=== PATIENT | male | born 1940 | race Caucasian/White ===

== ENCOUNTER 2025-01-22 07:03 | Emergency (ER) | payer MEDICARE, OTHER, SELFPAY ==
[2025-01-22 07:07] VITALS: BP 159/66; PULSE 59; RESP 16; TEMP 36.4; O2SAT 98; BMI 32.5
--- NOTE | 2025-01-22 07:23 | ED.GENADULT ---
HPI - General Adult General Date Seen: 01/22/25 Chief complaint: Insect Bite Stated complaint: bee sting, swollen forearm Time Seen by Provider: 01/22/25 07:12 Source: patient, RN notes reviewed and old records reviewed Mode of arrival: ambulatory Limitations: no limitations History of Present Illness HPI narrative: Fady is a very pleasant 84-year-old gentleman with history of rheumatoid arthritis, hypertension currently on methotrexate who comes to the emergency room with complaints of left forearm itching and swelling. Fady states that on January 20 he was just finishing up his golf game when something hit him. He assumes it was a hornet or a ground bee. This sting seems to have happened near the medial aspect of the distal forearm. Since that time he has had increased swelling and redness of the entire forearm associated with itching. He has not had fever or chills. He denies any vomiting or otherwise systemic symptoms. He is worried that the stinger may be still present. Does have a Band-Aid over the area that was stung. He has no problems moving his fingers. He has taken Benadryl. Related Data Home Medications ?Medication ?Instructions ?Recorded ?Confirmed allopurinol 100 mg tablet 200 mg PO DAILY 01/22/25 01/22/25 atorvastatin 10 mg tablet 10 mg PO DAILY cholesterol 01/22/25 01/22/25 doxazosin 4 mg tablet 4 mg PO DAILY 01/22/25 01/22/25 folic acid 1 mg tablet 1 mg PO QAM 01/22/25 01/22/25 hydrochlorothiazide 25 mg tablet 25 mg PO DAILY blood pressure 01/22/25 01/22/25 levothyroxine 150 mcg tablet 150 mcg PO DAILY 01/22/25 01/22/25 losartan 50 mg tablet 50 mg PO BID blood pressure 01/22/25 01/22/25 methotrexate sodium 2.5 mg tablet 20 mg PO 01/22/25 Allergies Allergy/AdvReac Type Severity Reaction Status Date / Time No Known Drug Allergies Allergy Verified 01/31/22 13:38 Review of Systems Status of ROS: Reports: 6 or more systems reviewed and unremarkable except as noted in History and below Const: Denies: fever or chills ENMT: Denies: throat pain Cardio: Denies: shortness of breath with exertion Resp: Denies: shortness of breath GI: Denies: vomiting Integ/Breast: Reports: itching and redness PFSH PFSH Social History Smoking Status: Former smoker How often do you have a drink containing alcohol: monthly or less How many standard drinks containing alcohol do you have on a typical day: 1 or 2 AUDIT-C Alcohol total score: 1 Non-prescribed substance use: denies use service: No Exam Narrative: Exam Narrative: Fady is alert and oriented. Very pleasant gentleman looking younger than his stated age. External ears eyes nose clear. No swelling of the mucous membranes. Heart with regular rate and rhythm and lungs are clear. Examination of the left arm shows circumferential swelling. It is not particularly warm to the touch. Rather faint erythema noted terminating at the elbow. There is no lymphadenopathy in the axillary area. His range of motion is full. In the area where the bandage was applied is a small clear fluid-filled blister. I do scraped this area at even though I am not convinced that there is a retained stinger. Const: Vital Signs, click to edit/add: Vital Signs - 24 hr 01/22/25 07:07 Temperature 97.5 F L Pulse Rate [Pulse Oximeter] 59 L Respiratory Rate 16 Blood Pressure [Ri ght Upper Arm] 159/66 H Pulse Oximetry 98 Oxygen Delivery Me thod Room Air Documenting provider has reviewed patient's vital signs: yes Course Course ED Course: Differential diagnosis is allergic/localized reaction to insect assault verses cellulitis. Given the dramatic nature of the swelling and that it is already day 3 after the incident would recommend a trial of antibiotics. Patient has no history of MRSA. Would also recommend low-dose prednisone. Patient is in agreement with this plan. No evidence of sepsis with no fever vomiting or systemic symptoms. Vital Signs Vital signs: Initial Vital Signs Temperature 97.5 F L 01/22/25 07:07 Temperature Source Temporal Artery Scan 01/22/25 07:07 Pulse Rate 59 L 01/22/25 07:07 Respiratory Rate 16 01/22/25 07:07 Blood Pressure 159/66 H 01/22/25 07:07 Blood Pressure Mean 97 01/22/25 07:07 Blood Pressure Position Sitting 01/22/25 07:07 Pulse Oximetry 98 01/22/25 07:07 Oxygen Delivery Method Room Air 01/22/25 07:07 Vital Signs Temperature 97.5 F L 01/22/25 07:07 Pulse Rate 59 L 01/22/25 07:07 Respiratory Rate 16 01/22/25 07:07 Blood Pressure 159/66 H 01/22/25 07:07 Pulse Oximetry 98 01/22/25 07:07 Oxygen Delivery Method Room Air 01/22/25 07:07 Temperature 97.5 F L 01/22/25 07:07 Pulse Rate 59 L 01/22/25 07:07 Respiratory Rate 16 01/22/25 07:07 Blood Pressure 159/66 H 01/22/25 07:07 Pulse Oximetry 98 01/22/25 07:07 Oxygen Delivery Method Room Air 01/22/25 07:07 Medical Decision Making MDM Narrative Medical decision making narrative: 1. Insect sting-most likely ground hornet or ground bee. No systemic symptoms such as vomiting shortness of breath or swelling of the mucous membranes. Would have patient do prednisone 20 mg p.o. b.i.d. x5 days. He has done this in the past and has not had any problems with that. 2. Questionable cellulitis-given the ongoing and rather dramatic symptoms I do think we should cover with an antibiotic. Patient has no history of MRSA, we did initially consider doxycycline. Given this however will use Keflex 500 mg p.o. t.i.d. x7 days. Patient is instructed to use a warm pack to the arm. 3. Disposition-seek medical attention for increasing redness red streaks up the arm vomiting or fever. Patient voices understanding. Discharge Plan Discharge Clinical Impression: Allergic reaction Patient Disposition: Home, Self-Care Condition: Unchanged Additional Instructions: Prednisone 20 mg twice a day for 5 days. Will also treat with an antibiotic called Keflex. Please seek medical attention if the swelling is creeping up your arm, you start running a fever, he started vomiting or you have worsening symptoms. Prescriptions: No Action losartan 50 mg tablet 50 mg PO BID atorvastatin 10 mg tablet 10 mg PO DAILY allopurinol 100 mg tablet 200 mg PO DAILY methotrexate sodium 2.5 mg tablet 20 mg PO levothyroxine 150 mcg tablet 150 mcg PO DAILY doxazosin 4 mg tablet 4 mg PO DAILY folic acid 1 mg tablet 1 mg PO QAM hydrochlorothiazide 25 mg tablet 25 mg PO DAILY Follow Up/Referrals: Celso Marshall MD [Primary Care Provider, Pediatrics] Stand Alone Forms: Intaleth Info Instructions
--- OUTSIDE RECORDS SUMMARY | 2025-01-22 07:31 | XMS_ITS | Clinical Summary ---
Author Organization [facility] Address [facility] [place] [address] Care Team Providers Care Leather Carver Name Role Phone Darren Alvarado MD Unavailable [phone] Nabil Goode OD Unavailable [phone] Chinmay Miller Unavailable Baldo Boudreaux MD Primary Care Provider [phone] Inna Zaidi Unavailable [phone] Allergies No known active allergies Medications Coenzyme Q10 (CO Q-10) 200 mg capsule Take by mouth once daily. 0 09/01/19 16 Active cholecalciferol (VITAMIN D-3) 2,000 unit capsule Take 1 capsule by mouth once daily. 0 03/26/20 17 Active [place]-3 Fatty Acids 300 mg capsule Take 1 capsule by mouth 2 times daily. 0 03/26/20 17 Active metroNIDAZOLE (METROGEL) 0.75 % gel prn 08/15/19 18 Active methotrexate (RHEUMATREX) 2.5 mg tablet 8 tablets in the am once weekly 0 09/30/19 20 Active glucosamine gutierrez 2KCl-chondroit (Glucosamine-Chond roitin DS) 500-400 mg tab Take by mouth. 1500mg-1200mg 0 10/27/19 21 Active allopurinoL (ZYLOPRIM) 100 mg tablet 01/28/20 21 Active Graduated Compression StockingsIndicatio ns:Bilateral lower extremity edema For personal use. Length: calf Strength: 16-20 mmHg Circumference in cm: For calf: Ankle 24.5cm, Calf 40.5cm, Ankle to calf length 39cm. 1 Packet 1 07/24/19 22 Active folic acid 1 mg tablet Take 1 Tablet by mouth once daily. 01/01/20 22 Active Milk Thistle 175 mg tablet Take by mouth once daily. 0 02/07/20 22 Active BIOTIN ORAL Take 1,000 mg by mouth. Active CPAPIndications:Ob structive sleep apnea of adult CPAP (E0601) machine for home use at pressure: 12cm , Choice of mask (A7030 or A7034) w/full face cushion (A7031) x1/mo, nasal cushion (A7032) x2/mo, or nasal pillows (A7033) x 2/mo; Length of Need: 99 months; Frequency of use: Daily 3 Each 3 01/05/20 24 Active atorvastatin 10 mg tabletIndications: Mixed hyperlipidemia Take 1 Tablet (10 mg) by mouth once daily. For Cholesterol. 90 Tablet 3 08/31/19 25 Active doxazosin 4 mg tabletIndications: Essential hypertension Take 1 Tablet (4 mg) by mouth once daily. 90 Tablet 3 08/31/19 25 Active hydroCHLOROthiazid e 25 mg tabletIndications: Essential hypertension Take 1 Tablet (25 mg) by mouth once daily. For blood pressure. 90 Tablet 3 08/31/19 25 Active levothyroxine 150 mcg tabletIndications: Hypothyroidism (acquired) Take 1 Tablet (150 mcg) by mouth once daily. 90 Tablet 3 08/31/19 25 Active losartan 50 mg tabletIndications: Essential hypertension Take 1 Tablet (50 mg) by mouth two times daily. For blood pressure. 180 Tablet 3 08/31/19 25 Active ciclopirox (CICLODAN) 8 % topical solutionIndication s:Great toe pain, left,Ingrown toenail Apply topically to affected area(s) at bedtime. 6.6 mL 2 11/12/19 25 Active Active Problems Problem Noted Date Diagnosed Date Obstructive sleep apnea of adult 01/05/2024 Adjustment disorder with anxious mood 01/19/2020 Overview (02/10/2022): Dec 2019: Started sertraline 50 mg daily. Recommended psychology consult. Jan 2022: tapering off sertraline (Zoloft) as symptoms improved when not 100% responsible for caretaking for his that had end-stage dementia. Hyperopia of both eyes with astigmatism and pres byopia 01/10/2020 Dry eyes, bilateral 01/10/2020 Elevated uric acid in blood 01/10/2020 Overview (01/10/2020): Dec 2019: Rheumatology started allopurinol. ADE (obstructive sleep apnea) 03/15/2019 Overview (03/19/2019): Feb 2019: follow up with Dr. Moran, [facility]. Arthritis of left hip 12/12/2018 Overview (09/27/2020): Nov 2018: Ultrasound guided cortisone injection to Left hip joint by Dr. Lundy. September 2020: Ultrasound guided cortisone injection to Left hip joint by Dr. Lundy. Elevated fasting glucose 09/22/2018 Overview (09/01/2024): September 2018: Fasting 112. September 2019: Fasting 110, screening hemoglobin A1c 5.5. Jan 2022: Fasting 112. August 2024: Fasting 119, Hemoglobin A1c 5.7 Rheumatoid arthritis involving right hand 2018 Overview (01/10/2021): Dec 2020: Dr. Alvarado follow up appointment, given Short course of oral Prednisone due to increased symptoms. Sinus bradycardia 03/26/2017 Overview (03/08/2020): Holeter done 08/2016. no pathologic arrhtyhmia Feb 2020: Repeat Holeter done, no pathologic arrhtyhmia , but was bradycardic. Irritable 08/19/2016 Family history of malignant neoplasm of gastrointestinal tract 10/10/2014 Family history of prostate cancer 08/15/2014 Heart murmur 02/18/2014 Overview (02/18/2014): Final Conclusion ECHO 02/08/2014 Normal left ventricular size and systolic function. Mild concentric left ventricular hypertrophy. Mild left atrial dilatation. Aortic sclerosis without stenosis. Mildly dilated ascending aorta. Estimated EF: 60-65% ACP (advance care planning) 06/19/2012 Overview (06/19/2012): Patient has identified Health Care Agent(s): Yes Patient has Advance Care Plan Documents (Health Care Directive, POLST): Yes Advance Care Plan Documents: Health Care Directive patient directed to bring copy of HCD into clinic for scanning. Encounter for long-term (current) use of other m edications 01/28/2012 Overview (01/28/2012): Plaquenil Mixed hyperlipidemia 03/29/2011 Hay fever 08/28/2010 PSEUDOPHAKIA--both 01/28/2007 LATTICE DEGENERATION 01/23/2005 Primary hypertension 03/16/2004 Overview (04/05/2010): STRESS ECHO 03/2010 This is a negative stress echocardiogram with no echocardiographic evidence of exercise induced myocardial ischemia at the work level achieved. 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 Lundy, 100% relief but only 1 week benefit ~ Physical therapy done Summer 2017 and again March 2018. ~ July 2018: L4-L5 Interlaminar epidural steroid injection by Dr. Lundy, No benefit for left hip and leg symptoms at all. HYPOTHYROIDISM NOS 03/21/2000 Resolved Problems Problem Noted Date Diagnosed Date Resolved Date Hemorrhoids 03/27/2012 02/18/2014 PHYSICAL GENERAL EXAM 03/29/20052013 Cough 02/12/2005 02/18/2014 Elevated blood pressure read ing without diagnosis of hypertension 03/02/2004 03/22/2010 Epistaxis 03/02/2004 02/18/2014 CERVICALGIA 03/02/2004 Encounters Date Type Department Care Team Description 12/09/2024 11:15 AM CDT Office Visit [facility] [id number] [place] [phone] Olivier Sutton, DPM Foot Problem (Follow up left great toenail- doing better. Still applying Ciclopirox on right great toenail. ) 12/09/2024 Travel 11/11/2024 8:00 AM CDT Office Visit [facility] [address] [place] [phone] Olivier Sutton, DPM Foot Problem (Painful ingrown toenail left big toe, might have one on the right foot as well but its not painful ) 11/11/2024 Travel from Last 3 Months Immunizations Immunization Administration Dates Next Due AMB Influenza, IIV3 (Age >=3 years)(Flu Clinic Only) 01/28/2012,02/01/2011 COVID-19 VACCINE SPIKEVAX (M ODERNA 50MCG/0.5ML) 12YO+ PFS 08/30/2024 COVID-19 vaccine ([employer]-Bio NTech 30mcg/0.3mL) PF, MDV 07/01/2020,06/10/2020 Influenza A (H1N1), Inactiva yudith (Age >=3 Years) 04/11/2009 Influenza, High-dose Inactivated 024,12/05/2018,12/11/2016,12/20,01/17/2015,02/08/2014 Influenza, High-dose Quadriv alent Inactivated 01/15/2022 Influenza, IIV3 (Age >=3 years) 01/28/20 13,01/12/2010,01/09/2009,01/20,02/27/2006,02/08/2005,02/10/20 04,02/08/2002,03/04/2001,03/06/2000 Influenza, Inactivated AIIV4 (Age 65+ Years) Preserv Free 01/06/2023,01/03/2021 Influenza, Inactivated IIV3 (Age 65+ Years) Preserv Free 01/04/2020,12/05/2018,01/02/2018 Pneumococcal Poly,23-Valent (Pneumovax) 02/08/2005 Pneumococcal conj 13-Valent (Prevnar 13) 09/04/2015 RSV, Recombinant ADJ Reconst ituted (Arexvy 120MCG/0.5mL) 02/10/2023 Td, Preservative Free (age > = 7 Years) 11/10/2023,11/04/2005 11/09/2033 Tdap 12/15/2013 Zoster (Shingrix-RZV, recombinant) 02/11/2018, Zoster (Zostavax-ZVL, live) 02/22/2009 Family History Medical History Relation Name Comments Benign prostatic hyperplasia Brother 1 Cancer-prostate Brother 2 Benign prostatic hyperplasia Brother 3 Cancer Brother 3 prostate Diabetes Brother 3 Good Health Daughter Benign prostatic hyperplasia Father Heart Disease Father Asthma Mother Cancer-colon Mother Heart Disease Mother Osteoporosis Mother Other Mother Emphysema Thyroid Disease Mother Genetic Other 2 brothers diab etic, ~cancer, HTN, other heart disease Father Good Health Son 1 Good Health Son 2 Relation Name Status Comments Brother 1 DM I, Kidney fa ilure/transplant, lymphoma Brother 2 Alive Brother 3 Alive Daughter Alive Father Alive Mother Other Son 1 Alive Son 2 Alive Social History Tobacco Use Types Packs/Day Years Used Date Smoking Tobacco: Former Cigarettes Q uit: 04/21/1959 Pipe Cigars Smokeless Tobacco: Never Tobacco Cessation:Counseling Given: Yes Alcohol Use Standard Drinks/Week Comments Yes 2 (1 standard drink = 0.6 oz pur e alcohol) 2020: 4-5 drinks a week PHQ-2 Answer Date Recorded PHQ-2 TOTAL SCORE 0 08/30/2024 Social Connections Answer Date Recorded Do you often feel lonely or isolated from those around you? 0 08/30/2024 Financial Resource Strain Answer Date R ecorded Difficulty of Paying Living Expenses 3 08/30/2024 Difficulty of Paying Living Expenses Not on file 08/30/2024 Food Insecurity Answer Date Recorded Do you worry your food will run out before you are able to buy more? 1 08/30/2024 Transportation Needs Answer Date Record ed Does lack of transportation keep you from medica l appointments? 1 08/30/2024 Does lack of transportation keep you from work, meetings or getting things that you need? 1 08/30/2024 Housing Stability Answer Date Recorded What is your housing situation today? 1 08/30/2024 Utilities Answer Date Recorded Do you have trouble paying f or utilities (for example, heat, electricity, water, phone)? 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 Not on file Not on demetria e Obstetrics History Last Filed Vital Signs Vital Sign Reading Time Taken Comments Blood Pressure 149/62 10/08/2024 10:57 AM CDT recheck BP after appointment Pulse 45 10/08/2024 10:11 AM CDT Temperature 36.4 C (97.5 F) 08/30/2024 7:28 AM CDT Respiratory Rate 14 01/30/2024 1:17 PM CDT Oxygen Saturation 98% 10/08/2024 10: 11 AM CDT Inhaled Oxygen Concentration - - Weight 100.9 kg (222 lb 8 oz) 10/08/2024 10:11 AM CDT Height 176.1 cm (5' 9.33) 10/08/2024 1 0:11 AM CDT Body Mass Index 32.54 10/08/2024 10:11 AM CDT Plan of Treatment Upcoming Encounters Date Type Department Care Team (Late st Contact Info) Description 03/24/2025 1:15 PM ASSOCIATE PROFESSOR OF ART Office Visit [facility] [address] [place] [phone] Olivier Sutton, DPM [address] [facility] [address] [place], [place] [phone] 03/25/2025 8:45 AM ASSOCIATE PROFESSOR OF ART Office Visit [facility] [place] [address] [facility] [address] [place] [phone] Soledad Lundy MD [address] [facility] [address] [place] [id number] Health Maintenance Due Date Last Done Comments COVID-19 vaccine series ( season) 2024 08/30/2024, 01/08/2024, 08/26/2023, Additional history exists Influenza Vaccine (#1) 2024 , 01/06/2023, 01/03/2021, Additional history exists Depression screening for age 12+ 08/30/2025 08/30/2024, 08/28/2023, 08/02/2022, Additional history exists Medicare Wellness for age 65+ 08/31/2025 08/30/2024, 08/28/2023, 08/02/2022, Additional history exists BMI (ht and wt on same day) for age 18+ 10/08/2025 10/08/2024, 08/30/2024, 03/29/2024, Additional history exists Tetanus booster 11/09/2033 11/10/2023, 11/20, 11/04/2005 Pneumococcal series for age 50+ Completed 09/04/2015, 02/08/2005 Zoster (shingles) series for age 50+ Completed 02/11/2018, 10/27/2017, 02/22/2009 RSV vaccine for adults or Completed 02/10/2023 Hepatitis B series for 19+ Aged Out N o longer eligible based on patient's age to complete this topic Insurance MEDICARE PB ONLY MEDICARE PART B HB ONLY COMMERCIAL BLUE CROSS OF NON-ME-ITS MEDICARE PART A HB ONLY MEDICARE PART B HB ONLY COMMERCIAL WORKERS COMP Advance Directives Documents on File Type Date Recorded Patient Cnc Milling Machinist Expl anation Power of Water Resource Engineer 02/08/2014 11:30 AM Pow er of Water Resource Engineer 07/06/02 Power of Water Resource Engineer 02/08/2014 11:22 AM ERR OR disregard Healthcare Directive 02/08/2014 11:19 AM HealthCare Directive 07/06/02 * Full Code (Latest Code Status on File) Date Activated Date Inactivated Comments 08/07/2011 8:10 AM 08/08/2011 2:26 AM Care Teams Leather Carver Relationship Specialty Start Date End Date Baldo Boudreaux MD [address] [place] [address] PCP - General Family Practice 08/02/22 Darren Alvarado MD Rheumatology 03/31/12 [place] [address] [place] [address] Tractor Operator Laser Leveling 08/15/14 Chinmay Miller [address] [facility] [address] [place] [address] Dermatology Dermatology 01/18/20 Inna Zaidi MBBS [address] [address] [place] [address] Cardiology Cardiovascular Disease 08/28/23
[2025-01-22 07:41] VITALS: BP 159/66; PULSE 59; RESP 16; TEMP 36.4
== END 2025-01-22 07:41 | disposition home or self-care (01) ==
LOC: ED 07:29
PROVIDERS: Emergency Provider Family Medicine; PCP Pediatrics
DX: T63.441A Toxic effect of venom of bees, accidental (unintentional), initial encounter (principal); Y92.39 Other specified sports and athletic area as the place of occurrence of the external cause
CPT/HCPCS: 99283; 99284